=== PATIENT | female | born 1955 | race Caucasian/White ===

== ENCOUNTER → 2017-02-24 | Outpatient (CLI) | payer MEDICAID ==
[~2017-02-24] MED LIST: ALBU8.5H INH; AMIO200T2 PO; AMLO10TA2 PO; ATOR80TA76 PO; CITA10TA7 PO; CYCL5TAB PO; DRON2.5C11 PO; LEVO25TA9 PO; METO25TA6 PO; PANT40TA27 PO; PRED20TA PO; TIOT18CA3 INH; WARF5TAB6 PO
[2017-02-24 09:39] LABS: BASOPHILS % (AUTO) 0.6 % (0-2); EOSINOPHILS # (AUTO) 0.1 T/MM3 (0-0.5); HCT - HEMATOCRIT 38.1 % (36-46); HGB - HEMOGLOBIN 12.9 GM/DL (12-16); IMMATURE GRANULOCYTE # (AUTO) 0.02 T/MM3 (0.00-0.03); IMMATURE GRANULOCYTE % (AUTO) 0.3 % (0.0-0.5); LYMPHOCYTES # (AUTO) 1.2 T/MM3 (1-4.8); LYMPHOCYTES % (AUTO) 16.7 % (23-45); MEAN CORPUSCULAR HGB 32.7 UUG (26-34); MEAN CORPUSCULAR HGB CONC(MCHC 33.9 GM/DL (31-37); MEAN CORPUSCULAR VOLUME 96.7 UM3 (80-100); MEAN PLATELET VOLUME 10.6 UM3 (9.4-12.4); MONOCYTES # (AUTO) 0.6 T/MM3 (0-0.8); MONOCYTES % (AUTO) 9.1 % (0-9.0); NEUTROPHILS #(AUTO)-ABSOLUTE 5.1 T/MM3 (1.8-7.7); NEUTROPHILS % (AUTO) 72.3 % (33-66); RED BLOOD COUNT 3.94 M/MM3 (4.00-5.20)
[2017-02-24 09:50] LABS: ALBUMIN 4.3 G/DL (3.5-5.0); ALBUMIN/GLOBULIN RATIO 1.5 RATIO (1.1-2.2); ALKALINE PHOSPHATASE 92 U/L (38-126); ALT (SGPT) 66 U/L (9-52); ANION GAP 11 MEQ/L (5-15); AST (SGOT) 43 U/L (14-36); BUN/CREATININE RATIO 13 RATIO (6-26); CALCIUM 9.5 MG/DL (8.4-10.2); CHLORIDE 106 MEQ/L (98-107); CK - CPK 75 U/L (30-135); CO2 - CARBON DIOXIDE 26 MEQ/L (22-30); CREATININE 1.2 MG/DL (0.7-1.2); GLOMERULAR FILTRATION RATE 46; GLUCOSE 102 MG/DL (65-110); POTASSIUM 4.6 MEQ/L (3.6-5); SODIUM 143 MEQ/L (134-144); TOTAL PROTEIN 7.2 G/DL (6.3-8.2)
[2017-02-24 10:29] LABS: THYROID STIM HORMONE-TSH 1.97 MIU/L (0.47-4.68)
== END ==
LOC: LAB 09:06
PROVIDERS: ATTEND Internal Medicine Cardiovascular Disease
DX: Z79.899 Other long term (current) drug therapy (principal); E78.4 Other hyperlipidemia; E07.9 Disorder of thyroid, unspecified
CPT/HCPCS: 36415; 80053; 82550; 83718; 83721; 84439; 84443; 84478; 85025

== ENCOUNTER → 2017-02-24 | Outpatient (CLI) | payer BC, MEDICAID ==
[~2017-02-24] MED LIST changes: +GADOBUTROL 10mMol/10ml INJECTION IV ONE; +SALINE FLUSH 10ml SYRINGE ONE
[2017-02-24 09:48] LABS: CREATININE 1.2 MG/DL (0.7-1.2)
--- NOTE | 2017-02-24 11:25 | DI ---
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 There is adjacent encephalomalacia as expected. There is some dural enhancement, also expected without evidence of nodular enhancement in or around the ventricles to suggest recurrent or residual tumor. Extensive periventricular T2/flair hyperintensity in the parietal lobes with scattered white matter lesions throughout the frontal and parietal lobes bilaterally consistent with small vessel ischemic change, advanced for the patient's age. The brain stem, cerebellum, and cerebral hemispheres otherwise have a normal morphologic appearance as well as MR signal intensity on all pulse sequences. There are no areas of restricted diffusion to suggest an acute infarct. There is no evidence of an intracranial hemorrhage or hydrocephalus. The visualized portions of the orbits, calvarium, paranasal sinuses, and skull base demonstrate no acute abnormality. 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 .
== END ==
LOC: IMA 08:59
PROVIDERS: ATTEND Neurological Surgery
DX: D32.0 Benign neoplasm of cerebral meninges (principal); Z98.890 Other specified postprocedural states
CPT/HCPCS: 36415; 70553; 82565; A9585